=== PATIENT | male | born 1935 ===

== ENCOUNTER 2022-08-04 18:25 | Inpatient (IN) ==
[2022-08-04 19:01] LABS: ABS Eosinophils 0.2 10^3/ul (0-0.6); ABS Lymphocytes 0.8 10^3/ul (1.0-4.8); ABS Monocytes 0.6 10^3/ul (0-0.8); ABS Neutrophils 6.5 10^3/ul (1.5-7.7); Eosinophil % 2.8 %; Hematocrit 38 % (42-52); Hemoglobin 12.5 g/dL (14.0-18.0); Lymphocyte % 9.7 %; Mean Corpuscular HGB Conc 33 g/dL (31-36); Mean Corpuscular Hemoglobin 31 pg (27-31); Mean Corpuscular Volume 93 fL (80-94); Mean Platelet Volume 7.8 fL (7.4-10.4); Platelet Count 223 10^3/uL (150-450); Red Blood Count 4.06 10^6 /uL (4.18-5.48); Red Cell Distribution Width 13 % (10-15); White Blood Count 8.1 10^3/uL (3.5-10.8)
[2022-08-04 19:22] LABS: INR 1.32 (0.88-1.18)
[2022-08-04 19:42] LABS: Albumin 3.9 g/dL (3.2-5.2); Albumin/Globulin Ratio 1.5 (1-3); Calcium 8.7 mg/dL (8.6-10.3); Creatinine, Serum 1.05 mg/dL (0.67-1.17); Globulin 2.6 g/dL (2-4); Potassium 3.8 mmol/L (3.5-5.0); Total Bilirubin 1.3 mg/dL (0.2-1.0); Total Protein 6.5 g/dL (6.4-8.9); eGFR CKD-EPI 68.3 (>60)
[2022-08-04 20:22] LABS: Magnesium 2.1 mg/dL (1.9-2.7)
[2022-08-04 20:31] LABS: High Sensitivity Troponin 1 Hr 22 pg/mL (<20)
[2022-08-04 20:37] LABS: TSH Ultra Thyroid Stim Horm 2.97 mcIU/mL (0.34-5.60)
[2022-08-04] MEDS ORDERED: Ondansetron 4 mg VIAL 2 MG/ML 2 ml VIAL IV PRN (21:02)
[2022-08-04] MEDS ORDERED: Iodixanol (CONTRAST) 320 MG/ML 100 ML SDV IV ONE (22:14)
[2022-08-04] MEDS: Enoxaparin 80 MG/0.8 ML SYR SUBCUT SCH (22:39)
[2022-08-04] MEDS ORDERED: Furosemide 40 mg/4 ml IV VIAL IV SLOW PU ONE (23:17)
[2022-08-04] MEDS ORDERED: Digoxin IV 0.5 MG/2 ML AMP (0.25 MG/ML) IV SLOW PU ONE (23:29)
[2022-08-04] MEDS: cefTRIAXone 1 gm/50 mL D5W 1 GM/50 ML BAG IV SCH (23:38)
[2022-08-05] MEDS: DOXYcycline 100 MG in NS 0.9% 250 ml 250 ML IVPB SCH ×2 (00:15→11:07)
[2022-08-05] MEDS ORDERED: Metoprolol Tartrate 5 mg VIAL 5 ml VIAL (1 mg/ml) IV ONE (00:59)
[2022-08-05 01:01] LABS: Urine Appearance Clear; Urine Bacteria Absent (Absent); Urine Bilirubin Negative (Negative); Urine Blood Negative (Negative); Urine Color Straw; Urine Glucose Negative (Negative); Urine Ketones Negative (Negative); Urine Nitrite Negative (Negative); Urine Protein Negative (Negative); Urine Red Blood Cell Trace(0-2/hpf) (Absent); Urine Specific Gravity 1.023 (1.002-1.030); Urine Urobilinogen Negative (Negative); Urine White Blood Cell 2+(11-20/hpf) (Absent)
[2022-08-05] MEDS ORDERED: Haloperidol 5 mg/ml SDV IV/IM 5 MG/ML AMP IV SLOW PU ONE ×2 (02:12→03:32)
[2022-08-05] MEDS ORDERED: Haloperidol 5 mg/ml SDV IV/IM 5 MG/ML AMP ONE (03:34)
[2022-08-05] MEDS ORDERED: Dexmedetomidine 1,000 MCG in NS 0.9% 250 ml 240 ML IV SCH (04:00)
[2022-08-05 04:57] LABS: ABS Lymphocytes 0.4 10^3/ul (1.0-4.8); ABS Monocytes 0.9 10^3/ul (0-0.8); ABS Neutrophils 8.6 10^3/ul (1.5-7.7); Eosinophil % 0.4 %; Hematocrit 37 % (42-52); Hemoglobin 12.5 g/dL (14.0-18.0); Lymphocyte % 4.3 %; Mean Corpuscular HGB Conc 34 g/dL (31-36); Mean Corpuscular Hemoglobin 31 pg (27-31); Mean Corpuscular Volume 91 fL (80-94); Mean Platelet Volume 7.2 fL (7.4-10.4); Platelet Count 239 10^3/uL (150-450); Red Blood Count 4.04 10^6 /uL (4.18-5.48); Red Cell Distribution Width 13 % (10-15)
[2022-08-05 05:28] LABS: Albumin 3.8 g/dL (3.2-5.2); Albumin/Globulin Ratio 1.4 (1-3); Calcium 8.7 mg/dL (8.6-10.3); Creatinine, Serum 1.04 mg/dL (0.67-1.17); Globulin 2.7 g/dL (2-4); Magnesium 1.9 mg/dL (1.9-2.7); Potassium 3.9 mmol/L (3.5-5.0); Total Bilirubin 1.7 mg/dL (0.2-1.0); Total Protein 6.5 g/dL (6.4-8.9); eGFR CKD-EPI 69.1 (>60)
[2022-08-05] MEDS: Cholecalciferol (VIT D3) 1,000 unit TAB PO SCH (08:58)
[2022-08-05] MEDS: Aspirin EC 81 mg TAB.EC (enteric coated) PO SCH (09:10)
[2022-08-05] MEDS: Enoxaparin 80 MG/0.8 ML SYR SUBCUT SCH ×2 (11:07→21:43)
[2022-08-05] MEDS ORDERED: Metoprolol Tartrate 5 mg VIAL 5 ml VIAL (1 mg/ml) IV PRN (11:58)
[2022-08-06] MEDS: cefTRIAXone 1 gm/50 mL D5W 1 GM/50 ML BAG IV SCH (00:05)
[2022-08-06] MEDS: DOXYcycline 100 MG in NS 0.9% 250 ml 250 ML IVPB SCH ×2 (01:20→12:27)
[2022-08-06 07:05] LABS: Hematocrit 39 % (42-52); Mean Corpuscular HGB Conc 34 g/dL (31-36); Mean Corpuscular Hemoglobin 31 pg (27-31); Mean Corpuscular Volume 92 fL (80-94); Mean Platelet Volume 7.6 fL (7.4-10.4); Platelet Count 275 10^3/uL (150-450); Red Cell Distribution Width 13 % (10-15); White Blood Count 8.3 10^3/uL (3.5-10.8)
[2022-08-06 07:48] LABS: Calcium 8.7 mg/dL (8.6-10.3); Creatinine, Serum 1.13 mg/dL (0.67-1.17); Potassium 4.1 mmol/L (3.5-5.0); eGFR CKD-EPI 62.5 (>60)
[2022-08-06] MEDS: Aspirin EC 81 mg TAB.EC (enteric coated) PO SCH (09:52)
[2022-08-06] MEDS: Cholecalciferol (VIT D3) 1,000 unit TAB PO SCH (09:52)
[2022-08-06] MEDS: dilTIAZem 30 MG TAB PO SCH ×2 (09:54→15:25)
[2022-08-06] MEDS: Enoxaparin 80 MG/0.8 ML SYR SUBCUT SCH ×2 (09:54→20:55)
[2022-08-06] MEDS ORDERED: Furosemide 40 mg/4 ml IV VIAL IV ONE (11:00)
[2022-08-06] MEDS ORDERED: dilTIAZem 30 MG TAB PO ONE (18:06)
[2022-08-07 07:09] LABS: Calcium 8.9 mg/dL (8.6-10.3); Creatinine, Serum 1.15 mg/dL (0.67-1.17); eGFR CKD-EPI 61.2 (>60)
[2022-08-07] MEDS: Aspirin EC 81 mg TAB.EC (enteric coated) PO SCH (10:10)
[2022-08-07] MEDS: Cholecalciferol (VIT D3) 1,000 unit TAB PO SCH (10:10)
[2022-08-07] MEDS: Enoxaparin 80 MG/0.8 ML SYR SUBCUT SCH ×3 (10:11→22:54)
[2022-08-08] MEDS: Aspirin EC 81 mg TAB.EC (enteric coated) PO SCH (09:03)
[2022-08-08] MEDS: Cholecalciferol (VIT D3) 1,000 unit TAB PO SCH (09:03)
[2022-08-08] MEDS: Enoxaparin 80 MG/0.8 ML SYR SUBCUT SCH ×2 (09:04→21:50)
[2022-08-09] MEDS: Aspirin EC 81 mg TAB.EC (enteric coated) PO SCH (08:42)
[2022-08-09] MEDS: Cholecalciferol (VIT D3) 1,000 unit TAB PO SCH (08:42)
[2022-08-09 09:14] LABS: Calcium 8.6 mg/dL (8.6-10.3); Creatinine, Serum 1.12 mg/dL (0.67-1.17); eGFR CKD-EPI 63.2 (>60)
[2022-08-09] MEDS: Enoxaparin 80 MG/0.8 ML SYR SUBCUT SCH (10:54)
[2022-08-09 11:42] VITALS: BP 115/77
== END 2022-08-09 14:15 | DRG 308 ==
LOC: ED 18:25 → SUATTDRO 21:02 → ICU 21:02 → MEDTELE 08-05 20:23
PROVIDERS: ADMIT Hospitalist; ATTEND Internal Medicine